=== PATIENT | female | born 2000 | race Caucasian/White ===

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

== ENCOUNTER 2021-02-13 07:48 | Emergency (ER) | payer OTHER ==
[2021-02-13 07:54] VITALS: BP 109/71; PULSE 93; RESP 20; TEMP 98.4
[2021-02-13] MEDS ORDERED: METOCLOPRAMIDE 5 MG/ML 2 ML VIAL IVP STA (08:03)
[2021-02-13] MEDS ORDERED: SODIUM CHLORIDE 0.9% 2,000 ML IV ONE (08:03)
--- NOTE | 2021-02-13 08:10 | ED ---
General Adult HPI - General Chief complaint: Upper Respiratory Infection Stated complaint: Dehydration, cough, no voice Time Seen by Provider: 02/13/21 07:54 Source: patient, RN notes reviewed Mode of arrival: ambulatory Limitations: no limitations - History of Present Illness Initial comments: This a 20-year-old female presents emergency from chief complaint cough congestion 2 weeks. Patient states that she's been sick, decreased oral intake. Patient states she has undiagnosed severe GI disorder which she states she receives nasal feeding tube was one month of the time. Patient states that her GI physician left [facility]. States that she feels dehydrated she supposed to maintain 140 pounds. Patient states that she cannot keep fluids at this time. She had fever or chills bodyaches nasal congestion, cough which is productive at this time. - Related Data Previous Rx's Medication Instructions Recorded Amoxicillin/Potassium Clav 1 tab PO Q12HR #20 tab 02/13/21 [Augmentin 875-125 Tablet] Allergies Allergy/AdvReac Type Severity Reaction Status Date / Time pentobarbital Allergy "PARADOXICAL Verified 02/13/21 09:15 [From Nembutal Sodium] REACTION"- PUNCHING, VIOLENT adhesive tape AdvReac Unknown "EATS HER Verified 02/13/21 09:15 SKIN" acetaminophen AdvReac Unknown Verified 02/13/21 09:15 NSAIDS (Non-Steroidal AdvReac Unknown- Verified 02/13/21 09:15 Anti-Inflamma FAMILY HX OF EZE-FABIO SYNDROME. Review of Systems ROS Statement: Those systems with pertinent positive or pertinent negative responses have been documented in the HPI. ROS Other: All systems not noted in ROS Statement are negative. Past Medical History Past Medical History: GERD/Reflux Additional Past Medical History / Comment(s): hx of febrile seizure at 18 months old, hydronephrosis, Seasonal asthma, elevated heart rate. Throat Mass History of Any Multi-Drug Resistant Organisms: MRSA Date of last positivie culture/infection: 2004 MDRO Source:: sinus Past Surgical History: Ear Surgery, Tonsillectomy Additional Past Surgical History / Comment(s): sinus surgery with infection and PICC Line x2., several EGD's Past Anesthesia/Blood Transfusion Reactions: Previous Problems w/ Anesthesia, Family History of Problems w/ Anesthesia Additional Past Anesthesia/Blood Transfusion Reaction / Comment(s): Patient had paradoxical reaction to nembutal- mom states violent-punching. Brother has difficulty waking up, elevated BP, rash. Mother has difficulty waking up. Past Psychological History: ADD/ADHD, Anxiety, Depression, PTSD Smoking Status: Never smoker Past Alcohol Use History: None Reported Past Drug Use History: None Reported - Past Family History Mother Family Medical History: No Reported History General Exam Limitations: no limitations General appearance: alert, in no apparent distress Head exam: Present: atraumatic, normocephalic, normal inspection Eye exam: Present: normal appearance, PERRL, EOMI. Absent: scleral icterus, conjunctival injection, periorbital swelling ENT exam: Present: normal exam, normal oropharynx, mucous membranes moist Neck exam: Present: normal inspection, full ROM. Absent: tenderness, meningismus, lymphadenopathy Respiratory exam: Present: normal lung sounds bilaterally. Absent: respiratory distress, wheezes, rales, rhonchi, stridor Cardiovascular Exam: Present: regular rate, normal rhythm, normal heart sounds. Absent: systolic murmur, diastolic murmur, rubs, gallop, clicks GI/Abdominal exam: Present: soft, normal bowel sounds. Absent: distended, tenderness, guarding, rebound, rigid Course Vital Signs 02/13/21 07:51 Temperature 98.4 F Pulse Rate 93 Respiratory 20 Rate Blood Pressure 109/71 O2 Sat by Pulse 96 Oximetry Medical Decision Making - Medical Decision Making Patient presented for upper respirations, dehydration she was hydrated, labs are unremarkable. Patient has negative COVID-19 she was hydrated will be discharged in stable condition return parameters were discussed. - Lab Data Result diagrams: 02/13/21 08:25 02/13/21 08:25 Lab Results 02/13/21 02/13/21 02/13/21 Range/Units 08:25 08:25 08:28 WBC 12.1 H (4.0-11.0) k/uL RBC 4.34 (3.80-5.40) m/uL Hgb 13.5 (11.4-16.0) gm/dL Hct 41.5 (34.0-46.0) % MCV 95.7 (80.0-100.0) fL MCH 31.1 (25.0-35.0) pg MCHC 32.5 (31.0-37.0) g/dL RDW 12.6 (11.5-15.5) % Plt Count 444 (150-450) k/uL MPV 7.3 Neutrophils % 81 % Lymphocytes % 13 % Monocytes % 3 % Eosinophils % 1 % Basophils % 1 % Neutrophils # 9.8 H (1.3-7.7) k/uL Lymphocytes # 1.5 (1.0-4.8) k/uL Monocytes # 0.4 (0-1.0) k/uL Eosinophils # 0.2 (0-0.7) k/uL Basophils # 0.1 (0-0.2) k/uL Sodium 142 (137-145) mmol/L Potassium 4.2 (3.5-5.1) mmol/L Chloride 110 H (98-107) mmol/L Carbon Dioxide 25 (22-30) mmol/L Anion Gap 7 mmol/L BUN 3 L (7-17) mg/dL Creatinine 0.48 L (0.52-1.04) mg/dL Est GFR (CKD-EPI)AfAm >90 (>60 ml/min/1.73 sqM) Est GFR (CKD-EPI)NonAf >90 (>60 ml/min/1.73 sqM) Glucose 109 H (74-99) mg/dL Calcium 9.9 (8.4-10.2) mg/dL Coronavirus (PCR) Not Detected (Not Detectd) Disposition Clinical Impression: Acute upper respiratory infection Disposition: HOME SELF-CARE Condition: Stable Instructions (If sedation given, give patient instructions): Upper Respiratory Infection (ED) Additional Instructions: Please return to the Emergency Department if symptoms worsen or any other concerns. Prescriptions: Amoxicillin/Potassium Clav [Augmentin 875-125 Tablet] 1 tab PO Q12HR #20 tab Is patient prescribed a controlled substance at d/c from ED?: No Referrals: None,Stated [Primary Care Provider] - 1-2 days Time of Disposition: 09:46
[2021-02-13 08:31] LABS: HCT 41.5 % (34.0-46.0); HGB 13.5 gm/dL (11.4-16.0); MCH 31.1 pg (25.0-35.0); MCHC 32.5 g/dL (31.0-37.0); MCV 95.7 fL (80.0-100.0); RBC 4.34 m/uL (3.80-5.40); RDW 12.6 % (11.5-15.5); WBC 12.1 k/uL (4.0-11.0)
[2021-02-13 08:32] LABS: Basophils # (A) 0.1 k/uL (0-0.2); Basophils % (A) 1 %; Eosinophils # (A) 0.2 k/uL (0-0.7); Eosinophils % (A) 1 %; Lymphocytes # (A) 1.5 k/uL (1.0-4.8); Lymphocytes % (A) 13 %; Mean Platelet Volume 7.3; Monocytes # (A) 0.4 k/uL (0-1.0); Monocytes % (A) 3 %; Neutrophils # (A) 9.8 k/uL (1.3-7.7); Neutrophils % (A) 81 %; Platelet Count 444 k/uL (150-450)
[2021-02-13 08:58] LABS: African American GFR (CKD) >90 (>60 ml/min/1.73 sqM); Anion Gap 7 mmol/L; Blood Urea Nitrogen 3 mg/dL (7-17); Calcium 9.9 mg/dL (8.4-10.2); Carbon Dioxide 25 mmol/L (22-30); Chloride 110 mmol/L (98-107); Glucose 109 mg/dL (74-99); Non-African American GFR(CKD) >90 (>60 ml/min/1.73 sqM); Potassium 4.2 mmol/L (3.5-5.1); Sodium 142 mmol/L (137-145)
== END 2021-02-13 10:34 | disposition home or self-care (01) ==
LOC: EC 07:48
DX: J06.9 Acute upper respiratory infection, unspecified (principal); Z20.822 Contact with and (suspected) exposure to COVID-19
CPT/HCPCS: 99283 ×2; 96374 ×2; 96361 ×3; 36415; 80048; 85025; 87635; J2765

== ENCOUNTER 2021-04-01 16:44 | Emergency (ER) | payer OTHER ==
[2021-04-01 17:14] VITALS: BP 109/72; PULSE 78; RESP 16; TEMP 98.8
--- NOTE | 2021-04-01 18:26 | ED ---
General Adult HPI - General Chief complaint: Nausea/Vomiting/Diarrhea Stated complaint: Covid exposure/symptoms Time Seen by Provider: 04/01/21 17:58 Source: patient Mode of arrival: ambulatory - History of Present Illness Initial comments: 20-year-old female presents emergency Department with cold-like symptoms. States that she is having headache, chills, diarrhea and nausea. She was exposed to Covid on 3 separate occasions in the past week. Not vaccinated. Reports that she continues to be able to tolerate oral intake. Denies fevers. No concern for . Denies vomiting or chest pain. No abdominal pain. No other alleviating, precipitating factors - Related Data Previous Rx's Medication Instructions Recorded Amoxicillin/Potassium Clav 1 tab PO Q12HR #20 tab 02/13/21 [Augmentin 875-125 Tablet] Allergies Allergy/AdvReac Type Severity Reaction Status Date / Time pentobarbital Allergy "PARADOXICAL Verified 04/01/21 17:14 [From Nembutal Sodium] REACTION"- PUNCHING, VIOLENT adhesive tape AdvReac Unknown "EATS HER Verified 04/01/21 17:14 SKIN" acetaminophen AdvReac Unknown Verified 04/01/21 17:14 NSAIDS (Non-Steroidal AdvReac Unknown- Verified 04/01/21 17:14 Anti-Inflamma FAMILY HX OF EZE-FABIO SYNDROME. Review of Systems ROS Statement: Those systems with pertinent positive or pertinent negative responses have been documented in the HPI. ROS Other: All systems not noted in ROS Statement are negative. Past Medical History Past Medical History: GERD/Reflux Additional Past Medical History / Comment(s): hx of febrile seizure at 18 months old, hydronephrosis, Seasonal asthma, elevated heart rate. Throat Mass , [id number] History of Any Multi-Drug Resistant Organisms: MRSA Date of last positivie culture/infection: 2004 MDRO Source:: sinus Past Surgical History: Ear Surgery, Tonsillectomy Additional Past Surgical History / Comment(s): sinus surgery with infection and PICC Line x2., several EGD's Past Anesthesia/Blood Transfusion Reactions: Previous Problems w/ Anesthesia, Family History of Problems w/ Anesthesia Additional Past Anesthesia/Blood Transfusion Reaction / Comment(s): Patient had paradoxical reaction to nembutal- mom states violent-punching. Brother has difficulty waking up, elevated BP, rash. Mother has difficulty waking up. Past Psychological History: ADD/ADHD, Anxiety, Depression, PTSD Smoking Status: Never smoker Past Alcohol Use History: None Reported Past Drug Use History: Marijuana - Past Family History Mother Family Medical History: No Reported History Course Vital Signs 04/01/21 17:11 Temperature 98.8 F Pulse Rate 78 Respiratory 16 Rate Blood Pressure 109/72 O2 Sat by Pulse 98 Oximetry Medical Decision Making - Medical Decision Making Upon arrival patient is placed into room 28. A thorough history and physical exam is performed. She is swabbed for Covid and it is negative. Results are discussed with the patient. She will be discharged home at this time and is to follow-up with her primary care doctor in regards to her symptoms. Vitals are stable at this time. Patient in no respiratory distress. Patient discharged home in stable condition - Lab Data Lab Results 04/01/21 Range/Units 17:14 Coronavirus (PCR) Not Detected (Not Detectd) Disposition Clinical Impression: Nausea & vomiting, Exposure to COVID-19 virus Disposition: HOME SELF-CARE Condition: Stable Instructions (If sedation given, give patient instructions): Upper Respiratory Infection (ED) Additional Instructions: You should quarantine if you have symptoms. Follow up with your primary care doctor in 2-4 days. Return to the emergency room for any new or worsening symptoms Is patient prescribed a controlled substance at d/c from ED?: No Referrals: None,Stated [Primary Care Provider] - 1-2 days Time of Disposition: 18:26
== END 2021-04-01 18:59 | disposition home or self-care (01) ==
LOC: EC 16:44
DX: R11.2 Nausea with vomiting, unspecified (principal); Z20.822 Contact with and (suspected) exposure to COVID-19; F90.9 Attention-deficit hyperactivity disorder, unspecified type; F41.9 Anxiety disorder, unspecified; F32.A Depression, unspecified; F43.10 Post-traumatic stress disorder, unspecified; F12.90 Cannabis use, unspecified, uncomplicated
CPT/HCPCS: 87635; 99283

== ENCOUNTER 2021-04-29 01:19 | Emergency (ER) | payer OTHER ==
[2021-04-29 01:28] VITALS: TEMP 97.3
[2021-04-29] MEDS ORDERED: SODIUM CHLORIDE 0.9% 1,000 ML IV ONE (02:39)
[2021-04-29 03:31] LABS: Basophils # (A) 0.1 k/uL (0-0.2); Basophils % (A) 1 %; Eosinophils # (A) 0.2 k/uL (0-0.7); Eosinophils % (A) 2 %; HCT 37.1 % (34.0-46.0); HGB 12.4 gm/dL (11.4-16.0); Lymphocytes # (A) 3.1 k/uL (1.0-4.8); Lymphocytes % (A) 29 %; MCH 31.7 pg (25.0-35.0); MCHC 33.4 g/dL (31.0-37.0); MCV 94.9 fL (80.0-100.0); Mean Platelet Volume 7.5; Monocytes # (A) 0.6 k/uL (0-1.0); Monocytes % (A) 6 %; Neutrophils # (A) 6.6 k/uL (1.3-7.7); Neutrophils % (A) 61 %; Platelet Count 433 k/uL (150-450); RBC 3.91 m/uL (3.80-5.40); RDW 12.8 % (11.5-15.5); WBC 10.8 k/uL (4.0-11.0)
[2021-04-29 03:47] LABS: ALT 9 U/L (4-34); AST 21 U/L (14-36); African American GFR (CKD) >90 (>60 ml/min/1.73 sqM); Albumin 4.1 g/dL (3.5-5.0); Alkaline Phosphatase 50 U/L (38-126); Anion Gap 9 mmol/L; Blood Urea Nitrogen 9 mg/dL (7-17); Calcium 9.6 mg/dL (8.4-10.2); Carbon Dioxide 25 mmol/L (22-30); Chloride 104 mmol/L (98-107); Glucose 87 mg/dL (74-99); Non-African American GFR(CKD) >90 (>60 ml/min/1.73 sqM); Potassium 4.1 mmol/L (3.5-5.1); Sodium 138 mmol/L (137-145); Total Bilirubin 1.9 mg/dL (0.2-1.3); Total Protein 6.9 g/dL (6.3-8.2)
--- NOTE | 2021-04-29 04:13 | ED ---
Recheck HPI - General Chief Complaint: Recheck/Abnormal Lab/Rx Stated Complaint: Dehydration Time Seen by Provider: 04/29/21 02:34 Source: patient Mode of arrival: ambulatory - History of Present Illness Initial Comments: 20 year-old female patient presents for concerns of dehydration. Patient states she has chronic abdominal pain, vomiting, and diarrhea. States her physician be lieves it is related to a genetic mutation which they are currently evaluating. States that she sees a main galley scullion for bilateral hydronephrosis and was told if she became dehydrated to come in for IV hydration. Patient states that she has had decreased urine output. States she has vomited three times today. She states she always has diarrhea. States her symptoms are no worse than usual. Denies a [place] fever or chills. Denies any chance of . States her period started on 04/11/2021. Denies chance of . - Related Data Previous Rx's Medication Instructions Recorded Amoxicillin/Potassium Clav 1 tab PO Q12HR #20 tab 02/13/21 [Augmentin 875-125 Tablet] Allergies Allergy/AdvReac Type Severity Reaction Status Date / Time pentobarbital Allergy "PARADOXICAL Verified 04/29/21 01:28 [From Nembutal Sodium] REACTION"- PUNCHING, VIOLENT adhesive tape AdvReac Unknown "EATS HER Verified 04/29/21 01:28 SKIN" acetaminophen AdvReac Unknown Verified 04/29/21 01:28 NSAIDS (Non-Steroidal AdvReac Unknown- Verified 04/29/21 01:28 Anti-Inflamma FAMILY HX OF EZE-FABIO SYNDROME. Review of Systems ROS Statement: Those systems with pertinent positive or pertinent negative responses have been documented in the HPI. ROS Other: All systems not noted in ROS Statement are negative. Past Medical History Past Medical History: GERD/Reflux Additional Past Medical History / Comment(s): hx of febrile seizure at 18 months old, hydronephrosis, Seasonal asthma, elevated heart rate. Throat Mass , MTDN5 History of Any Multi-Drug Resistant Organisms: MRSA Date of last positivie culture/infection: 2004 MDRO Source:: sinus Past Surgical History: Ear Surgery, Tonsillectomy Additional Past Surgical History / Comment(s): sinus surgery with infection and PICC Line x2., several EGD's Past Anesthesia/Blood Transfusion Reactions: Previous Problems w/ Anesthesia, Family History of Problems w/ Anesthesia Additional Past Anesthesia/Blood Transfusion Reaction / Comment(s): Patient had paradoxical reaction to nembutal- mom states violent-punching. Brother has difficulty waking up, elevated BP, rash. Mother has difficulty waking up. Past Psychological History: ADD/ADHD, Anxiety, Depression, PTSD Smoking Status: Never smoker Past Alcohol Use History: None Reported Past Drug Use History: Marijuana - Past Family History Mother Family Medical History: No Reported History General Exam General appearance: alert, in no apparent distress, other (This is a well- developed, well-nourished adult female in no acute distress.) Respiratory exam: Present: normal lung sounds bilaterally. Absent: respiratory distress, wheezes, rales, rhonchi, stridor Cardiovascular Exam: Present: regular rate, normal rhythm, normal heart sounds. Absent: systolic murmur, diastolic murmur, rubs, gallop, clicks GI/Abdominal exam: Present: soft, normal bowel sounds. Absent: distended, tenderness, guarding, rebound, rigid Neurological exam: Present: alert, oriented X3, CN II-XII intact Psychiatric exam: Present: normal affect, normal mood Skin exam: Present: warm, dry, intact, normal color. Absent: rash Course Vital Signs 04/29/21 01:23 Temperature 97.3 F L Pulse Rate 81 Respiratory 16 Rate Blood Pressure 103/71 Medical Decision Making - Medical Decision Making 20-year-old female patient presents to the emergency department today for dehydration. Reports chronic vomiting diarrhea. Physical examination is unremarkable. Abdomen soft and nontender. Labs reviewed and are unremarkable. 2+ ketones in the urine. She was given IV fluids. She'll be discharged follow- up with her primary care physician as needed. Return parameters were discussed in detail. She verbalizes understanding and agrees with this plan. My attending is Dr. Armando. - Lab Data Result diagrams: 04/29/21 03:10 04/29/21 03:10 Lab Results 04/29/21 04/29/21 04/29/21 Range/Units 03:10 03:10 03:17 WBC 10.8 (4.0-11.0) k/uL RBC 3.91 (3.80-5.40) m/uL Hgb 12.4 (11.4-16.0) gm/dL Hct 37.1 (34.0-46.0) % MCV 94.9 (80.0-100.0) fL MCH 31.7 (25.0-35.0) pg MCHC 33.4 (31.0-37.0) g/dL RDW 12.8 (11.5-15.5) % Plt Count 433 (150-450) k/uL MPV 7.5 Neutrophils % 61 % Lymphocytes % 29 % Monocytes % 6 % Eosinophils % 2 % Basophils % 1 % Neutrophils # 6.6 (1.3-7.7) k/uL Lymphocytes # 3.1 (1.0-4.8) k/uL Monocytes # 0.6 (0-1.0) k/uL Eosinophils # 0.2 (0-0.7) k/uL Basophils # 0.1 (0-0.2) k/uL Sodium 138 (137-145) mmol/L Potassium 4.1 (3.5-5.1) mmol/L Chloride 104 (98-107) mmol/L Carbon Dioxide 25 (22-30) mmol/L Anion Gap 9 mmol/L BUN 9 (7-17) mg/dL Creatinine 0.50 L (0.52-1.04) mg/dL Est GFR (CKD-EPI)AfAm >90 (>60 ml/min/1.73 sqM) Est GFR (CKD-EPI)NonAf >90 (>60 ml/min/1.73 sqM) Glucose 87 (74-99) mg/dL Calcium 9.6 (8.4-10.2) mg/dL Total Bilirubin 1.9 H (0.2-1.3) mg/dL AST 21 (14-36) U/L ALT 9 (4-34) U/L Alkaline Phosphatase 50 (38-126) U/L Total Protein 6.9 (6.3-8.2) g/dL Albumin 4.1 (3.5-5.0) g/dL Urine Color Yellow Urine Appearance Clear (Clear) Urine pH 5.5 (5.0-8.0) Ur Specific [place] 1.025 (1.001-1.035) Urine Protein Trace H (Negative) Urine Glucose (UA) Negative (Negative) Urine Ketones 2+ H (Negative) Urine Blood Negative (Negative) Urine Nitrite Negative (Negative) Urine Bilirubin Negative (Negative) Urine Urobilinogen 2.0 (<2.0) mg/dL Ur Leukocyte Esterase Negative (Negative) Urine HCG, Qual (Not Detectd) 04/29/21 Range/Units 03:17 WBC (4.0-11.0) k/uL RBC (3.80-5.40) m/uL Hgb (11.4-16.0) gm/dL Hct (34.0-46.0) % MCV (80.0-100.0) fL MCH (25.0-35.0) pg MCHC (31.0-37.0) g/dL RDW (11.5-15.5) % Plt Count (150-450) k/uL MPV Neutrophils % % Lymphocytes % % Monocytes % % Eosinophils % % Basophils % % Neutrophils # (1.3-7.7) k/uL Lymphocytes # (1.0-4.8) k/uL Monocytes # (0-1.0) k/uL Eosinophils # (0-0.7) k/uL Basophils # (0-0.2) k/uL Sodium (137-145) mmol/L Potassium (3.5-5.1) mmol/L Chloride (98-107) mmol/L Carbon Dioxide (22-30) mmol/L Anion Gap mmol/L BUN (7-17) mg/dL Creatinine (0.52-1.04) mg/dL Est GFR (CKD-EPI)AfAm (>60 ml/min/1.73 sqM) Est GFR (CKD-EPI)NonAf (>60 ml/min/1.73 sqM) Glucose (74-99) mg/dL Calcium (8.4-10.2) mg/dL Total Bilirubin (0.2-1.3) mg/dL AST (14-36) U/L ALT (4-34) U/L Alkaline Phosphatase (38-126) U/L Total Protein (6.3-8.2) g/dL Albumin (3.5-5.0) g/dL Urine Color Urine Appearance (Clear) Urine pH (5.0-8.0) Ur Specific [place] (1.001-1.035) Urine Protein (Negative) Urine Glucose (UA) (Negative) Urine Ketones (Negative) Urine Blood (Negative) Urine Nitrite (Negative) Urine Bilirubin (Negative) Urine Urobilinogen (<2.0) mg/dL Ur Leukocyte Esterase (Negative) Urine HCG, Qual Not Detected (Not Detectd) Disposition Clinical Impression: Dehydration Disposition: HOME SELF-CARE Condition: Good Instructions (If sedation given, give patient instructions): Dehydration (ED), Acute Nausea and Vomiting (ED), Acute Diarrhea (ED) Additional Instructions: Follow-up with your primary care physician for recheck in 1-2 days. Return to the emergency department for any new, worsening, or concerning symptoms. Is patient prescribed a controlled substance at d/c from ED?: No Referrals: None,Stated [Primary Care Provider] - 1-2 days Time of Disposition: 04:38
[2021-04-29 04:22] LABS: Appearance,Urine Clear (Clear); Bilirubin,Urine Negative (Negative); Blood,Urine Negative (Negative); Color,Urine Yellow; Glucose,Urine (UA) Negative (Negative); Ketones,Urine 2+ (Negative); Leukocyte Esterase,Urine Negative (Negative); Nitrite,Urine Negative (Negative); PH, Urine 5.5 (5.0-8.0); Protein,Urine Trace (Negative); Specific Gravity,Urine 1.025 (1.001-1.035)
[2021-04-29 04:52] VITALS: BP 117/68; PULSE 73; RESP 17
== END 2021-04-29 04:52 | disposition home or self-care (01) ==
LOC: EC 01:19
DX: E86.0 Dehydration (principal); K21.9 Gastro-esophageal reflux disease without esophagitis; F12.90 Cannabis use, unspecified, uncomplicated
CPT/HCPCS: 36415; 80053; 81003; 81025; 85025; 96360; 99284

== ENCOUNTER 2021-12-19 07:09 | Emergency (ER) | payer OTHER ==
[2021-12-19 07:22] VITALS: TEMP 98.1
[2021-12-19] MEDS ORDERED: diphenhydrAMINE 25 MG CAP PO STA (07:38)
[2021-12-19] MEDS ORDERED: ACETAMINOPHEN TAB 325 MG TAB PO STA (07:38)
--- NOTE | 2021-12-19 07:42 | ED ---
Female Urogenital HPI - General Chief complaint: Vaginal Bleeding Stated complaint: Vaginal bleeding, 10 weeks Time Seen by Provider: 12/19/21 07:19 Source: patient, RN notes reviewed Mode of arrival: ambulatory Limitations: no limitations - History of Present Illness Initial comments: This is a 21-year-old female who presents to the emergency department for vaginal bleeding and cramping in . States that the bleeding started this morning and is described as being light spotting. Denies passing any clots. The abdominal cramping has been present for 1-2 days. She is approximately 10 weeks . States that she is a high-risk due to elevated platelet counts. She is currently being treated at [place] for obstetrics care and is awaiting an appointment with hematology oncology in [place] as well for further evaluation of the platelet elevation. She is not taking anything for the pain. States that when she takes Tylenol, she feels like she is "burning from the inside out". However, she does not have the sen sation if she takes it with Benadryl. This is her first . Denies any nausea or vomiting. Denies any fevers, chills, sore throat, cough, dyspnea, chest pain, palpitations, nausea, vomiting, diarrhea, back pain, or headaches. MD Complaint: vaginal bleeding, pelvic pain Onset/Timin -: days(s) Last Menstrual Period: 10/05/21 Patient : Yes Number of weeks : 10 - Related Data Previous Rx's Medication Instructions Recorded Amoxicillin/Potassium Clav 1 tab PO Q12HR #20 tab 02/13/21 [Augmentin 875-125 Tablet] Allergies Allergy/AdvReac Type Severity Reaction Status Date / Time pentobarbital Allergy "PARADOXICAL Verified 12/19/21 07:19 [From Nembutal Sodium] REACTION"- PUNCHING, VIOLENT adhesive tape AdvReac Unknown "EATS HER Verified 12/19/21 07:19 SKIN" acetaminophen AdvReac Unknown Verified 12/19/21 07:19 NSAIDS (Non-Steroidal AdvReac Unknown- Verified 12/19/21 07:19 Anti-Inflamma FAMILY HX OF EZE-FABIO SYNDROME. Review of Systems ROS Statement: Those systems with pertinent positive or pertinent negative responses have been documented in the HPI. ROS Other: All systems not noted in ROS Statement are negative. Past Medical History Past Medical History: GERD/Reflux Additional Past Medical History / Comment(s): hx of febrile seizure at 18 months old, hydronephrosis, Seasonal asthma, elevated heart rate. Throat Mass , MTDN5, [place] evaluation no confirmed diagnosis. History of Any Multi-Drug Resistant Organisms: MRSA Date of last positivie culture/infection: 2004 MDRO Source:: sinus Past Surgical History: Ear Surgery, Tonsillectomy Additional Past Surgical History / Comment(s): sinus surgery with infection and PICC Line x2., several EGD's Past Anesthesia/Blood Transfusion Reactions: Previous Problems w/ Anesthesia, Family History of Problems w/ Anesthesia Additional Past Anesthesia/Blood Transfusion Reaction / Comment(s): Patient had paradoxical reaction to nembutal- mom states violent-punching. Brother has difficulty waking up, elevated BP, rash. Mother has difficulty waking up. Past Psychological History: ADD/ADHD, Anxiety, Depression, PTSD Smoking Status: Vaper Past Alcohol Use History: None Reported Past Drug Use History: Marijuana - Past Family History Mother Family Medical History: No Reported History General Exam Limitations: no limitations General appearance: alert, in no apparent distress Head exam: Present: atraumatic, normocephalic, normal inspection Respiratory exam: Present: normal lung sounds bilaterally. Absent: respiratory distress, wheezes, rales, rhonchi, stridor Cardiovascular Exam: Present: regular rate, normal rhythm, normal heart sounds. Absent: systolic murmur, diastolic murmur, rubs, gallop, clicks GI/Abdominal exam: Present: normal bowel sounds Neurological exam: Present: alert, oriented X3, CN II-XII intact Psychiatric exam: Present: normal affect, normal mood Skin exam: Present: warm, dry, intact, normal color. Absent: rash Course Vital Signs 12/19/21 12/19/21 12/19/21 07:19 10:07 10:46 Temperature 98.1 F Pulse Rate 106 H 78 81 Respiratory 18 15 16 Rate Blood Pressure 105/65 98/61 111/72 O2 Sat by Pulse 99 99 97 Oximetry Medical Decision Making - Medical Decision Making This is a 21-year-old female who presents to the emergency department for v aginal bleeding and abdominal cramping. Lab work reveals leukocytosis likely due to . Urinalysis is entirely negative. Patient is Rh + and no RhoGAM is indicated. Obstetrics ultrasound reveals a single live intrauterine with possible subchorionic hemorrhage. Patient was given Tylenol and Benadryl, which she states helped her pain immensely. She did not have the sensation of burning throughout her body when taking the Tylenol because she took the Benadryl with it. Discussed that she can continue taking this at home as needed. 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 Advised [id number] vitamin B6 and Unisom as needed if she has any nausea and vomiting. Return precautions reviewed in depth, the patient is instructed to return to the emergency department with any new, worsening, or concerning symptoms. Patient verbalized understanding. This case was discussed in detail with the attending ED physician. Presentation, findings, and treatment plan discussed in detail as well. - Lab Data Result diagrams: 12/19/21 08:02 12/19/21 08:02 Lab Results 12/19/21 12/19/21 12/19/21 Range/Units 08:02 08:02 08:02 WBC 12.5 H (4.0-11.0) k/uL RBC 4.17 (3.80-5.40) m/uL Hgb 12.9 (11.4-16.0) gm/dL Hct 39.4 (34.0-46.0) % MCV 94.3 (80.0-100.0) fL MCH 30.9 (25.0-35.0) pg MCHC 32.8 (31.0-37.0) g/dL RDW 12.5 (11.5-15.5) % Plt Count 464 H (150-450) k/uL MPV 7.0 Neutrophils % 78 % Lymphocytes % 14 % Monocytes % 5 % Eosinophils % 1 % Basophils % 1 % Neutrophils # 9.8 H (1.3-7.7) k/uL Lymphocytes # 1.8 (1.0-4.8) k/uL Monocytes # 0.6 (0-1.0) k/uL Eosinophils # 0.1 (0-0.7) k/uL Basophils # 0.1 (0-0.2) k/uL Sodium 136 L (137-145) mmol/L Potassium 4.4 (3.5-5.1) mmol/L Chloride 104 (98-107) mmol/L Carbon Dioxide 21 L (22-30) mmol/L Anion Gap 11 mmol/L BUN 5 L (7-17) mg/dL Creatinine 0.44 L (0.52-1.04) mg/dL Est GFR (CKD-EPI)AfAm >90 (>60 ml/min/1.73 sqM) Est GFR (CKD-EPI)NonAf >90 (>60 ml/min/1.73 sqM) Glucose 83 (74-99) mg/dL Calcium 9.1 (8.4-10.2) mg/dL Total Bilirubin 1.0 (0.2-1.3) mg/dL AST 25 (14-36) U/L ALT 10 (4-34) U/L Alkaline Phosphatase 41 (38-126) U/L Total Protein 7.0 (6.3-8.2) g/dL Albumin 4.3 (3.5-5.0) g/dL HCG, Quant 139381.0 mIU/mL Urine Color Colorless Urine Appearance Clear (Clear) Urine pH 7.0 (5.0-8.0) Ur Specific [place] 1.006 (1.001-1.035) Urine Protein Negative (Negative) Urine Glucose (UA) Negative (Negative) Urine Ketones Negative (Negative) Urine Blood Negative (Negative) Urine Nitrite Negative (Negative) Urine Bilirubin Negative (Negative) Urine Urobilinogen <2.0 (<2.0) mg/dL Ur Leukocyte Esterase Negative (Negative) Blood Type Blood Type Recheck Bld Type Recheck Status 12/19/21 Range/Units 08:03 WBC (4.0-11.0) k/uL RBC (3.80-5.40) m/uL Hgb (11.4-16.0) gm/dL Hct (34.0-46.0) % MCV (80.0-100.0) fL MCH (25.0-35.0) pg MCHC (31.0-37.0) g/dL RDW (11.5-15.5) % Plt Count (150-450) k/uL MPV Neutrophils % % Lymphocytes % % Monocytes % % Eosinophils % % Basophils % % Neutrophils # (1.3-7.7) k/uL Lymphocytes # (1.0-4.8) k/uL Monocytes # (0-1.0) k/uL Eosinophils # (0-0.7) k/uL Basophils # (0-0.2) k/uL Sodium (137-145) mmol/L Potassium (3.5-5.1) mmol/L Chloride (98-107) mmol/L Carbon Dioxide (22-30) mmol/L Anion Gap mmol/L BUN (7-17) mg/dL Creatinine (0.52-1.04) mg/dL Est GFR (CKD-EPI)AfAm (>60 ml/min/1.73 sqM) Est GFR (CKD-EPI)NonAf (>60 ml/min/1.73 sqM) Glucose (74-99) mg/dL Calcium (8.4-10.2) mg/dL Total Bilirubin (0.2-1.3) mg/dL AST (14-36) U/L ALT (4-34) U/L Alkaline Phosphatase (38-126) U/L Total Protein (6.3-8.2) g/dL Albumin (3.5-5.0) g/dL HCG, Quant mIU/mL Urine Color Urine Appearance (Clear) Urine pH (5.0-8.0) Ur Specific [place] (1.001-1.035) Urine Protein (Negative) Urine Glucose (UA) (Negative) Urine Ketones (Negative) Urine Blood (Negative) Urine Nitrite (Negative) Urine Bilirubin (Negative) Urine Urobilinogen (<2.0) mg/dL Ur Leukocyte Esterase (Negative) Blood Type A Positive Blood Type Recheck No Previous Record Bld Type Recheck Status [facility] ONLY - Radiology Data Radiology results: report reviewed, image reviewed Disposition Clinical Impression: Vaginal bleeding during Disposition: HOME SELF-CARE Instructions (If sedation given, give patient instructions): Subchorionic Hemorrhage (ED) Additional Instructions: Return to the emergency department with any new, worsening, or concerning symptoms. Take Tylenol with the Benadryl if you have any recurrence of pain. If bleeding becomes heavier or you start passing clots, return to the emergency department for reevaluation. 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 Is patient prescribed a controlled substance at d/c from ED?: No Referrals: None,Stated [Primary Care Provider] - 1-2 days
[2021-12-19 08:32] LABS: Basophils # (A) 0.1 k/uL (0-0.2); Basophils % (A) 1 %; Eosinophils # (A) 0.1 k/uL (0-0.7); Eosinophils % (A) 1 %; HCT 39.4 % (34.0-46.0); HGB 12.9 gm/dL (11.4-16.0); Lymphocytes # (A) 1.8 k/uL (1.0-4.8); Lymphocytes % (A) 14 %; MCH 30.9 pg (25.0-35.0); MCHC 32.8 g/dL (31.0-37.0); MCV 94.3 fL (80.0-100.0); Monocytes # (A) 0.6 k/uL (0-1.0); Monocytes % (A) 5 %; Neutrophils # (A) 9.8 k/uL (1.3-7.7); Neutrophils % (A) 78 %; Platelet Count 464 k/uL (150-450); RBC 4.17 m/uL (3.80-5.40); RDW 12.5 % (11.5-15.5); WBC 12.5 k/uL (4.0-11.0)
[2021-12-19 08:36] LABS: Appearance,Urine Clear (Clear); Bilirubin,Urine Negative (Negative); Blood,Urine Negative (Negative); Color,Urine Colorless; Glucose,Urine (UA) Negative (Negative); Ketones,Urine Negative (Negative); Leukocyte Esterase,Urine Negative (Negative); Nitrite,Urine Negative (Negative); Protein,Urine Negative (Negative); Specific Gravity,Urine 1.006 (1.001-1.035); Urobilinogen,Urine <2.0 mg/dL (<2.0)
[2021-12-19 08:37] LABS: ALT 10 U/L (4-34); African American GFR (CKD) >90 (>60 ml/min/1.73 sqM); Albumin 4.3 g/dL (3.5-5.0); Anion Gap 11 mmol/L; Blood Urea Nitrogen 5 mg/dL (7-17); Calcium 9.1 mg/dL (8.4-10.2); Carbon Dioxide 21 mmol/L (22-30); Chloride 104 mmol/L (98-107); Glucose 83 mg/dL (74-99); Non-African American GFR(CKD) >90 (>60 ml/min/1.73 sqM); Sodium 136 mmol/L (137-145)
[2021-12-19 08:44] LABS: AST 25 U/L (14-36); Alkaline Phosphatase 41 U/L (38-126); Potassium 4.4 mmol/L (3.5-5.1)
--- NOTE | 2021-12-19 09:52 | US ---
EXAMINATION TYPE: Transabdominal DATE OF EXAM: 12/19/2021 9:24 AM COMPARISON: NONE CLINICAL HISTORY: Vaginal bleeding in . Cramping EXAM PERFORMED: Transvaginal (TV) and Transabdominal (TA) EXAM MEASUREMENTS: GESTATIONAL AGE / DATING Dates by LMP: (10 weeks/5 days) EDC: 07/12/2022 Dates by First Scan: No previous this is first scan Dates by Current Scan for: (10 weeks/4 days) EDC: 07/13/2022 MATERNAL ANATOMY Uterus: 8.7 x 7.3 x 7.4 cm Right Ovary: 2.6 x 1.4 x 2.9 cm Left Ovary: 2.3 x 0.9 x 2.4 cm Post CDS / Adnexa: wnl Presence of free fluid: No Presence of corpus luteal cyst: Right ovary 1.1 x 1.5 x 1.7 cm Presence of subchorionic bleed: Fundal: 0.45 x 1.2 x 0.52 cm GESTATION / SURVEY CRL: 3.6cm (10 weeks/4 days) Yolk Sac (normal less than 6mm): 6mm Heart Rate: 185 bpm Rhythm: Normal IUP: Viable IUP Age Appropriate Anatomy Limbs: Visualized Calvarium: Visualized Date of LMP: 10/05/2021 IMPRESSION: 1. Single intrauterine gestation estimated at 10 weeks 4 days gestation based on crown-rump length. C ardiac activity measures 185 bpm. For 2 Small fundal subchorionic hemorrhage may be present.
[2021-12-19 10:47] VITALS: BP 111/72; PULSE 81; RESP 16
== END 2021-12-19 10:47 | disposition home or self-care (01) ==
LOC: EC 07:09
DX: O20.9 Hemorrhage in early pregnancy, unspecified (principal); O26.891 Other specified pregnancy related conditions, first trimester; R10.9 Unspecified abdominal pain; R10.2 Pelvic and perineal pain; O99.331 Smoking (tobacco) complicating pregnancy, first trimester; F17.290 Nicotine dependence, other tobacco product, uncomplicated; Z3A.10 10 weeks gestation of pregnancy; Z88.8 Allergy status to other drugs, medicaments and biological substances; Z91.048 Other nonmedicinal substance allergy status; Z88.6 Allergy status to analgesic agent
CPT/HCPCS: 36415; 76801; 80053; 81003; 84702; 85025; 86900; 86901; 99284

== ENCOUNTER 2022-04-27 11:33 | Outpatient (CLI) | payer OTHER ==
[2022-04-27 12:56] VITALS: BP 108/60; PULSE 87; RESP 16; TEMP 98.2
--- NOTE | 2022-05-05 12:24 | P.MSEPDOC ---
Presenting Problems - Arrival Data Date of Arrival on Unit: 04/27/22 Time of Arrival on Unit: 11:35 Mode of Transport: Ambulatory - Complaint OB-Reason for Admission/Chief Complaint: Other Comment: Pt DOM 29 2/7 weeks has seen a doctor at [facility]. pt arrived c/o nausea and vomitting for the last 24hrs. pt states she threw up last at 11 am. Medical History - Information : 1 Para: 0 Term: 0 : 0 Abortions: Spontaneous or Elective: 0 Number of Living Children: 0 - Gestational Age Gestational Age by CAMPOS (wks/days): 29 Weeks and 1 Days - History Complications: No Care Review of Systems - Review of Systems Constitutional: No problems Breast: No problems ENT: No problems Cardiovascular: No problems Respiratory: No problems Gastrointestinal: Diarrhea Genitourinary: No problems Musculoskeletal: No problems Neurological: Dizziness Skin: No problems Vital Signs - Temperature Temperature: 98.2 F Temperature Source: Oral - Pulse Right Brachial Pulse Rate: 87 Pulse Assessment Method: Automatic Cuff - Respirations Respiratory Rate: 16 Oxygen Delivery Method: Room Air O2 Sat by Pulse Oximetry: 98 - Blood Pressure Right Arm Blood Pressure: 108/60 Blood Pressure Mean: 76 Blood Pressure Source: Automatic Cuff Medical Screen Scoring - Cervical Exam Membranes: Intact - Uterine Contractions Intensity: Absent - Assessment - Baby A Baseline FHR: 150 NST: Reactive Physician Notification - Physician Notified Physician Notified Date: 04/27/22 Physician Notified Time: 12:26 Physician: Dr Alvarado New Order Received: Yes - Notification Comment Comment: may discharge to home or the ER for furthe evualtion for nasea and vomitting Maternal Triage Index - Non-Urgent/Priority 4 Non-Urgent Priority 4: Yes Criteria Met for Priority 4: pt DOM EDC 4/9 29 2/7 weeks gestation. pt arrived c/o nausea and vomitting for the last 24 hrs. v/s obtained temp 98.2 B/P 108/6 PULSE 87 RESP 46 PULSE OX 98% reactive NST. ABD SOFT AND NONTENDER NO EMESIS NOTED WHILE PT HERE.Dr. Clark called with report . orders received that pt could go tothe ER for further evualtion for the Nausea and vomitting that she has been cleared OB status Disposition - Disposition OB Disposition: Discharge to home Discharge Date: 04/27/22 Discharge Time: 12:28 I agree with the RN Medical Screening Exam: Yes Case reviewed; plan agreed upon as documented in EMR&OBIX.: Yes Diagnosis: nausea and vomitting
== END 2022-04-27 12:28 | disposition home or self-care (01) ==
LOC: FBPOP 11:33
PROVIDERS: ATTEND Obstetrics & Gynecology
DX: O26.893 Other specified pregnancy related conditions, third trimester (principal); Z3A.29 29 weeks gestation of pregnancy; R11.2 Nausea with vomiting, unspecified; Z91.048 Other nonmedicinal substance allergy status; Z88.6 Allergy status to analgesic agent; Z88.8 Allergy status to other drugs, medicaments and biological substances
CPT/HCPCS: 59025; G0463; 99213

== ENCOUNTER → 2023-03-01 | Outpatient (CLI) | payer OTHER ==
[2023-03-01 20:14] LABS: Appearance,Urine Clear (Clear); Bilirubin,Urine Negative (Negative); Blood,Urine Negative (Negative); Color,Urine Yellow (Yellow); Ketones,Urine Negative (Negative); Nitrite,Urine Negative (Negative); PH, Urine 7.5; Specific Gravity,Urine 1.016 (1.001-1.030)
[2023-03-01 20:52] LABS: Basophils # (A) 0.12 X 10*3/uL (0.00-0.10); Basophils % (A) 1.3 %; Eosinophils # (A) 0.27 X 10*3/uL (0.04-0.35); HCT 42.4 % (37.2-46.3); HGB 13.6 g/dL (12.0-15.0); Lymphocytes % (A) 34.9 %; MCH 30.8 pg (27.0-32.0); MCHC 32.1 g/dL (32.0-37.0); MCV 95.9 FL (80.0-97.0); Mean Platelet Volume 9.6 FL (9.5-12.2); Monocytes # (A) 0.56 X 10*3/uL (0.20-1.00); Monocytes % (A) 6.3 %; NRBC Per 100 WBC 0 X 10*3/uL (0.00-0.01); Neutrophils # (A) 4.81 X 10*3/uL (1.80-7.70); Neutrophils % (A) 54.2 %; Platelet Count 546 X 10*3/uL (140-440); RBC 4.42 X 10*6/uL (4.10-5.20); RDW 13.9 % (11.5-14.5); WBC 8.89 X 10*3/uL (4.50-10.00)
[2023-03-01 21:25] LABS: Albumin 4.9 g/dL (3.8-4.9); Immunoglobulin A 78.2 mg/dL (60.0-350.0); Protein, Total 7.1 g/dL (6.2-8.2)
[2023-03-01 21:29] LABS: ALT 17 U/L (8-44); AST 24 U/L (13-35); Albumin/Globulin Ratio 2.27 Ratio (1.60-3.17); Alkaline Phosphatase 62 U/L (41-126); BUN/Creat Ratio 12.17 Ratio (12.00-20.00); Blood Urea Nitrogen 7.3 mg/dL (9.0-27.0); C Reactive Protein <0.30 mg/dL (0.00-0.80); Calcium 9.9 mg/dL (8.7-10.3); Carbon Dioxide 24.6 mmol/L (21.6-31.8); Chloride 105 mmol/L (96-109); Creatine Kinase 99 U/L (26-186); Globulin 2.2 g/dL (1.6-3.3); Glucose 79 mg/dL (70-110); Potassium 4.4 mmol/L (3.5-5.5); Rheumatoid Factor, Qnt <15 IU/mL (0-15); Sodium 143 mmol/L (135-145); T4, Free (Free Thyroxine) 1.14 ng/dL (0.80-1.80); Total Bilirubin 0.7 mg/dL (0.3-1.2); Total Protein 7.2 g/dL (6.2-8.2); Uric Acid 3.6 mg/dL (2.9-7.7)
[2023-03-01 22:02] LABS: Erythrocyte Sedimentation Rate 6 mm/Hr (0-20)
[2023-03-01 22:39] LABS: Hepatitis B Surface Antigen Nonreactive; Hepatitis C IgG Antibody Nonreactive
[2023-03-02 01:44] LABS: Anti-DNA, DS unit <1.0 IU/mL; Anti-Smith Ab Interp Negative (Negative); Cardiolipin Ab IgG Interp Negative (Negative); Cardiolipin Ab IgM Interp Negative (Negative); Cardiolipin IgM Antibody <1.5 U/mL; Centromere Antibody <0.2 AI; Centromere Antibody Interp Negative (Negative); DNA Double-Stranded Negative (Negative); Scleroderma SC-70 Ab <0.2 AI
[2023-03-02 01:50] LABS: Cyclic Citrull Pep IgG Unit <1.5 U/mL (<=3.9); Cyclic Citrullinated Pep IgG Negative
[2023-03-02 08:36] LABS: Angiotensin-1 Converting Enz. 7 U/L (8-52)
[2023-03-02 10:19] LABS: HLA B27 NEGATIVE
[2023-03-02 13:17] LABS: APTT 42 Sec(s) (<43); Dilute Russell Viper Venom 33 Sec(s) (<44)
[2023-03-02 14:15] LABS: C-ANCA <1:20 Titer (<1:20)
[2023-03-02 14:29] LABS: Gamma Globulin 0.91 g/dL (0.70-1.50)
[2023-03-02 14:45] LABS: Free Kappa Lt Chain Qnt, Urine 1.56 mg/dL (0.00-3.29); Free Lambda Lt Chain Qt, Urine 0.25 mg/dL (0.00-0.38)
== END | disposition home or self-care (01) ==
LOC: LABWHC1 13:28
PROVIDERS: ATTEND Internal Medicine Rheumatology
DX: Z11.59 Encounter for screening for other viral diseases (principal); E55.9 Vitamin D deficiency, unspecified; E03.9 Hypothyroidism, unspecified; R42 Dizziness and giddiness; R76.8 Other specified abnormal immunological findings in serum; Z72.89 Other problems related to lifestyle; Z86.19 Personal history of other infectious and parasitic diseases
CPT/HCPCS: 36415; 80053; 81003; 82164; 82306; 82550; 83883; 84165; 84439; 84443; 84550; 85025; 85613; 85652; 85730; 86038; 86140; 86147; 86160; 86162; 86200; 86225; 86235; 86255; 86334; 86431; 86803; 86812; 87340; 93005

== ENCOUNTER → 2023-03-09 | Outpatient (CLI) | payer OTHER ==
--- NOTE | 2023-03-10 11:25 | CA ---
Transthoracic Echo Report Name: Ericka Ramirez Age: 22 Gender: F : 2000 Exam Date: 03/09/2023 17:53 Exam Location: [place] Echo Ht (in): 61 Wt (lb): 152 Ordering Physician: Raymundo Catalan MD Attending/Referring Phys: Raymundo Catalan MD Cloak Room Attendant Jessica Upton, [facility] Procedure CPT: Indications: R07.89 CHEST PAIN Z86.19 PERSONAL HX OF SEPTICEMIA Cardiac Hx: Technical Quality: Fair Contrast 1: Total Dose (mL): Contrast 2: Total Dose (mL): MEASUREMENTS (Male / Female) Normal Values 2D ECHO LV Diastolic Diameter PLAX 4.7 cm 4.2 - 5.9 / 3.9 - 5.3 cm LV Systolic Diameter PLAX 3.0 cm IVS Diastolic Thickness 0.6 cm 0.6 - 1.0 / 0.6 - 0.9 cm LVPW Diastolic Thickness 0.7 cm 0.6 - 1.0 / 0.6 - 0.9 cm LV Relative Wall Thickness 0.3 RV Internal Dim ED PLAX 3.0 cm LA Volume 30.8 cm??? 18 - 58 / 22 - 52 cm??? LA Volume Index 17.7 cm???/m??? 16 - 28 cm???/m??? M-MODE Aortic Root Diameter MM 2.4 cm LA Systolic Diameter MM 2.4 cm LA Ao Ratio MM 1.0 AV Cusp Separation MM 2.0 cm DOPPLER AV Peak Velocity 113.7 cm/s AV Peak Gradient 5.2 mmHg AV Mean Velocity 83.0 cm/s AV Mean Gradient 2.9 mmHg AV Velocity Time Integral 22.2 cm LVOT Peak Velocity 102.9 cm/s LVOT Peak Gradient 4.2 mmHg LVOT Velocity Time Integral 19.7 cm MV Area PHT 4.7 cm??? Mitral E Point Velocity 96.3 cm/s Mitral A Point Velocity 74.7 cm/s Mitral E to A Ratio 1.3 MV Deceleration Time 160.1 ms MV E' Velocity 13.3 cm/s Mitral E to MV E' Ratio 7.3 TR Peak Velocity 197.1 cm/s TR Peak Gradient 15.5 mmHg Right Ventricular Systolic Press 19.9 mmHg FINDINGS Left Ventricle Normal left ventricular size, wall thickness, systolic function with no obvious regional wall motion abnormalities. Normal left ventricular diastolic filling pattern for age. The ejection fraction is visually estimated at 55-60 %. Right Ventricle The right ventricle is normal in size and function. Right ventricular systolic pressure within normal limits. Right Atrium The right atrium is normal in size. Left Atrium The left atrium is normal in size. Mitral Valve Structurally normal mitral valve without significant stenosis or prolapse. There is no mitral regurgitation. Aortic Valve Structurally normal aortic valve without significant sclerosis or stenosis. There is no aortic regurgitation. Tricuspid Valve Structurally normal tricuspid valve without significant stenosis. Pulmonary artery systolic pressure is normal. Mild tricuspid regurgitation. Pulmonic Valve Structurally normal pulmonic valve without significant stenosis. There is trace regurgitation. Pericardium Normal pericardium without effusion. Aorta Normal aortic root dimension. CONCLUSIONS Normal LV systolic function Previewed by: Dr. Daryl Cohen MD (Electronically Signed) Final Date: 10 March 2023 11:24
== END | disposition home or self-care (01) ==
LOC: RADECHMAIN 17:48
PROVIDERS: ATTEND Family Medicine
DX: R07.89 Other chest pain (principal); Z86.19 Personal history of other infectious and parasitic diseases
CPT/HCPCS: 93306

== ENCOUNTER → 2023-03-17 | Outpatient (CLI) | payer OTHER | END | disposition home or self-care (01) | LOC: LABWHC1 12:18 | PROVIDERS: ATTEND Family Medicine | DX: Z11.1 Encounter for screening for respiratory tuberculosis (principal) | CPT/HCPCS: 36415; 86480 ==

== ENCOUNTER → 2023-05-04 | Outpatient (CLI) | payer OTHER ==
--- NOTE | 2023-05-05 07:19 | XR ---
EXAMINATION TYPE: XR thoracic spine 2V DATE OF EXAM: 05/04/2023 CLINICAL HISTORY: pain TECHNIQUE: Frontal, lateral, and swimmer's view of thoracic spine are obtained. COMPARISON: None. FINDINGS: Thoracic spine show satisfactory alignment without evidence of acute fracture or dislocatio n. Vertebral body heights are preserved. Disc spaces are well preserved. Visualized ribs are unrem arkable. IMPRESSION: No acute fracture or dislocation is seen in the thoracic spine. ICD 10 NO FRACTURE, INIT IAL EVALUATION
--- NOTE | 2023-05-05 07:19 | XR ---
EXAMINATION TYPE: XR lumbar spine 2 or 3V DATE OF EXAM: 05/04/2023 CLINICAL HISTORY: pain TECHNIQUE: Three views of the lumbar spine are submitted. COMPARISON: None. FINDINGS: There are 5 lumbar type vertebral bodies identified. The lumbar spine shows satisfactory alignment w ithout evidence of acute fracture or dislocation. Vertebral body heights are within normal limits. Disc spaces are within normal limits. The overlying soft tissue appears unremarkable. IMPRESSION: No acute fracture or dislocation is seen in the lumbar spine. ICD 10 NO FRACTURE, INITIAL EVALUATION
== END | disposition home or self-care (01) ==
LOC: RADXRMAIN 16:28
PROVIDERS: ATTEND Family Medicine
DX: M54.9 Dorsalgia, unspecified (principal)
CPT/HCPCS: 72070; 72100

== ENCOUNTER → 2023-09-02 | Outpatient (CLI) | payer OTHER ==
--- NOTE | 2023-09-02 18:48 | US ---
EXAMINATION TYPE: US venous doppler duplex LE BI DATE OF EXAM: 09/02/2023 4:24 PM COMPARISON: NONE CLINICAL INDICATION: Female, 22 years old with history of M79.89 OTHER SPECIFIED SOFT TISSUE DISORDER S; Intermittent leg swelling; family history of DVT; Lowered immune system; abnormal labs SIDE PERFORMED: Bilateral TECHNIQUE: The lower extremity deep venous system is examined utilizing real time linear array sonog nelson with graded compression, doppler sonography and color-flow sonography. VESSELS IMAGED: Common Femoral Vein Deep Femoral Vein Greater Saphenous Vein * Femoral Vein Popliteal Vein Small Saphenous Vein * Proximal Calf Veins (* superficial vessels) Right Leg: Negative for DVT Left Leg: Negative for DVT IMPRESSION: 1. Bilateral lower extremity ultrasound negative for deep venous thrombosis.
== END | disposition home or self-care (01) ==
LOC: RADUSWWP 16:01
PROVIDERS: ATTEND Pediatrics
DX: M79.89 Other specified soft tissue disorders (principal)
CPT/HCPCS: 93970

== ENCOUNTER 2024-09-23 21:50 | Emergency (ER) | payer OTHER ==
[2024-09-23 21:58] VITALS: TEMP 98.1
--- NOTE | 2024-09-23 23:26 | ED ---
Fall HPI - General Chief Complaint: Fall Stated Complaint: fall-15 weeks twins Time Seen by Provider: 09/23/24 21:55 Source: patient, RN notes reviewed Mode of arrival: ambulatory Limitations: no limitations - History of Present Illness Initial Comments: This is a 23-year-old female who presents to the emergency department for a fall. Patient is approximately 15 weeks with twins. States that last night she fell on her left side. She did not have any substantial impact to her abdomen, but does have some residual soreness and nausea. Denies any vaginal bleeding. Currently follows with Dr. Hamilton, DIRECTOR OF MATH. Complaint: fall - Related Data Home Medications Medication Instructions Recorded Confirmed Vit No.179/Iron/Folic 04/27/22 [ Tablet] Sertraline [Zoloft] 50 mg PO DAILY 04/27/22 04/27/22 Previous Rx's Medication Instructions Recorded Ondansetron Odt [Zofran Odt] 4 mg PO Q8HR PRN #20 tab 05/14/22 Allergies Allergy/AdvReac Type Severity Reaction Status Date / Time pentobarbital Allergy "PARADOXICAL Verified 05/14/22 13:51 [From Nembutal Sodium] REACTION"- PUNCHING, VIOLENT adhesive tape AdvReac Unknown "EATS HER Verified 05/14/22 13:51 SKIN" acetaminophen AdvReac Unknown Verified 05/14/22 13:51 NSAIDS (Non-Steroidal AdvReac Unknown- Verified 05/14/22 13:51 Anti-Inflamma FAMILY HX OF EZE-FABIO SYNDROME. Review of Systems ROS Statement: Those systems with pertinent positive or pertinent negative responses have been documented in the HPI. ROS Other: All systems not noted in ROS Statement are negative. Past Medical History Past Medical History: GERD/Reflux Additional Past Medical History / Comment(s): hx of febrile seizure at 18 months old, hydronephrosis, Seasonal asthma, elevated heart rate. Throat Mass , MTDN5, CA evaluation no confirmed diagnosis. CVID History of Any Multi-Drug Resistant Organisms: None Reported Date of last positivie culture/infection: 2004 MDRO Source:: sinus Past Surgical History: Ear Surgery, Tonsillectomy Additional Past Surgical History / Comment(s): sinus surgery with infection and PICC Line x2., several EGD's Past Anesthesia/Blood Transfusion Reactions: Previous Problems w/ Anesthesia, Family History of Problems w/ Anesthesia Additional Past Anesthesia/Blood Transfusion Reaction / Comment(s): Patient had paradoxical reaction to nembutal- mom states violent-punching. Brother has difficulty waking up, elevated BP, rash. Mother has difficulty waking up. Past Psychological History: ADD/ADHD, Anxiety, Depression, PTSD Smoking Status: Vaper Past Alcohol Use History: None Reported Past Drug Use History: None Reported - Past Family History Mother Family Medical History: No Reported History General Exam Limitations: no limitations General appearance: alert, in no apparent distress Head exam: Present: atraumatic, normocephalic, normal inspection Respiratory exam: Present: normal lung sounds bilaterally. Absent: respiratory distress, wheezes, rales, rhonchi, stridor Cardiovascular Exam: Present: regular rate, normal rhythm Neurological exam: Present: alert, oriented X3, CN II-XII intact Psychiatric exam: Present: normal affect, normal mood Skin exam: Present: warm, dry, intact, normal color. Absent: rash Course Vital Signs 09/23/24 09/24/24 21:54 00:19 Temperature 98.1 F 98.1 F Pulse Rate 80 79 Respiratory 16 18 Rate Blood Pressure 107/68 105/68 O2 Sat by Pulse 98 99 Oximetry Medical Decision Making - Medical Decision Making This is a 23 year old female who presents to the emergency department for abdominal pain. Was pt. sent in by a medical professional or institution? @ -No Did you speak to anyone other than the patient for history? @ -No Did you review nursing and triage notes? @ -Yes, and I agree, it is accurate with regards to the patient's symptoms. Were old charts reviewed? @ -No Differential Diagnosis? @ -Differential Abdominal Pain Women: Appendicitis, Cholecystitis, diverticulosis, ischemic bowel, pancreatitis, hepatitis, UTI, gastroenteritis, AAA, incarcerated hernia, bowel obstruction, constipation, inflammatory bowel, hepatitis, peptic ulcer disease, splenic infarction, perforated viscus, vulvitis, ovarian torsion, PID, kidney stone, placenta abruption, this is not meant to be an all-inclusive list EKG interpreted by me (3pts min.)? @ -Not obtained X-rays interpreted by me (1pt min.)? @ -Not obtained CT interpreted by me (1pt min.)? @ -Not obtained U/S interpreted by me (1pt. min.)? @ -Obstetrics ultrasound obtained. My interpretation identifies an intraut erine twin gestation. What testing was considered but not performed? (CT, X-rays, U/S, labs)? Why? @ -None What meds were considered but not given? Why? @ -None Did you discuss the management of the patient with other professionals? @ -No Did you reconcile home meds? @ -No Was smoking cessation discussed for >3mins.? @ -No Was critical care preformed (if so, how long)? @ -No Were there social determinants of health that impacted care today? How? (Homelessness, low income, unemployed, alcoholism, drug addiction, transportation, low edu. Level, literacy, decrease access to med. care, residential, rehab)? @ -No Was there de-escalation of care discussed even if they declined? (Discuss DNR or withdrawal of care, Hospice)? @ -No What co-morbidities impacted this encounter? (DM, HTN, Smoking, COPD, CAD, Cancer, CVA, Hep., AIDS, mental health diagnosis, sleep apnea, morbid obesity)? @ - Was patient admitted / discharged? @ -Discharged. Lab work demonstrates leukocytosis and is otherwise unremarkable. Urinalysis negative for signs of blood or infection. Obstetrics ultrasound demonstrates a viable twin gestation with an estimated gestational age of 15 weeks. No acute abnormalities visualized. Tylenol administered for pain relief. Advised she continue with Tylenol as needed and follow-up with her DIRECTOR OF MATH. Patient discharged home in stable condition. Case discussed with ED attending Dr. Jacques. Return precautions reviewed in depth, the patient is instructed to return to the emergency department with any new, worsening, or concerning symptoms. Patient verbalized understanding. Undiagnosed new problem with uncertain prognosis? @ -None Drug Therapy requiring intensive monitoring for toxicity (Heparin, Nitro, Insulin, Cardizem)? @ -None Were any procedures done? @ -None Diagnosis/symptom? @ -Fall, abdominal pain, Acute, or Chronic, or Acute on Chronic? @ -Acute Uncomplicated (without systemic symptoms) or Complicated (systemic symptoms)? @ -Uncomplicated Side effects of treatment? @ -None Exacerbation, Progression, or Severe Exacerbation] @ -Not applicable Poses a threat to life or bodily function? @ -No - Lab Data Result diagrams: 09/23/24 23:15 09/23/24 23:15 Lab Results 09/23/24 09/23/2409/23/25 Range/Units 23:13 23:15 23:15 WBC 16.07 H (4.50-10.00) 10*3/uL RBC 3.49 L (4.10-5.20) 10*6/uL Hgb 11.1 L (12.0-15.0) g/dL Hct 32.4 L (37.2-46.3) % MCV 92.8 (80.0-97.0) fL MCH 31.8 (27.0-32.0) pg MCHC 34.3 (32.0-37.0) g/dL Plt Count 471 H (140-440) 10*3/uL MPV 9.2 L (9.5-12.2) fL Immature Gran % (Auto) 0.5 % Neutrophils % 75.3 % Lymphocytes % 17.2 % Monocytes % 4.8 % Eosinophils % 1.6 % Basophils % 0.6 % Immature Gran # 0.08 H (0.00-0.04) 10*3/uL Neutrophils # 12.11 H (1.80-7.70) 10*3/uL Lymphocytes # 2.76 (0.90-5.00) 10*3/uL Monocytes # 0.77 (0.20-1.00) 10*3/uL Eosinophils # 0.26 (0.04-0.35) 10*3/uL Basophils # 0.09 (0.00-0.10) 10*3/uL Sodium 134 L (137-145) mmol/L Potassium 3.9 (3.5-5.1) mmol/L Chloride 103 (98-107) mmol/L Carbon Dioxide 21 L (22-30) mmol/L Anion Gap 10 mmol/L BUN 3 L (7-17) mg/dL Creatinine 0.41 L (0.52-1.04) mg/dL Est GFR (CKD-EPI)AfAm >90 (>60 ml/min/1.73 sqM) Est GFR (CKD-EPI)NonAf >90 (>60 ml/min/1.73 sqM) Glucose 93 (74-99) mg/dL Calcium 9.7 (8.4-10.2) mg/dL Total Bilirubin 0.9 (0.2-1.3) mg/dL AST 25 (14-36) U/L ALT 19 (4-34) U/L Alkaline Phosphatase 50 (38-126) U/L Total Protein 6.4 (6.3-8.2) g/dL Albumin 3.7 (3.5-5.0) g/dL Urine Color Urine Appearance (Clear) Urine pH (5.0-8.0) Ur Specific Brid[place]man (1.001-1.035) Urine Protein (Negative) Urine Glucose (UA) (Negative) Urine Ketones (Negative) Urine Blood (Negative) Urine Nitrite (Negative) Urine Bilirubin (Negative) Urine Urobilinogen (<2.0) mg/dL Ur Leukocyte Esterase (Negative) Blood Type A Positive Blood Type Recheck A Pos Bld Type Recheck Status No Antibody Screen NEGATIVE Spec Expiration Date 09/26/2024 - 231209/23/24 Range/Units 23:40 WBC (4.50-10.00) 10*3/uL RBC (4.10-5.20) 10*6/uL Hgb (12.0-15.0) g/dL Hct (37.2-46.3) % MCV (80.0-97.0) fL MCH (27.0-32.0) pg MCHC (32.0-37.0) g/dL Plt Count (140-440) 10*3/uL MPV (9.5-12.2) fL Immature Gran % (Auto) % Neutrophils % % Lymphocytes % % Monocytes % % Eosinophils % % Basophils % % Immature Gran # (0.00-0.04) 10*3/uL Neutrophils # (1.80-7.70) 10*3/uL Lymphocytes # (0.90-5.00) 10*3/uL Monocytes # (0.20-1.00) 10*3/uL Eosinophils # (0.04-0.35) 10*3/uL Basophils # (0.00-0.10) 10*3/uL Sodium (137-145) mmol/L Potassium (3.5-5.1) mmol/L Chloride (98-107) mmol/L Carbon Dioxide (22-30) mmol/L Anion Gap mmol/L BUN (7-17) mg/dL Creatinine (0.52-1.04) mg/dL Est GFR (CKD-EPI)AfAm (>60 ml/min/1.73 sqM) Est GFR (CKD-EPI)NonAf (>60 ml/min/1.73 sqM) Glucose (74-99) mg/dL Calcium (8.4-10.2) mg/dL Total Bilirubin (0.2-1.3) mg/dL AST (14-36) U/L ALT (4-34) U/L Alkaline Phosphatase (38-126) U/L Total Protein (6.3-8.2) g/dL Albumin (3.5-5.0) g/dL Urine Color Colorless Urine Appearance Clear (Clear) Urine pH 6.5 (5.0-8.0) Ur Specific [place]man 1.005 (1.001-1.035) Urine Protein Negative (Negative) Urine Glucose (UA) Negative (Negative) Urine Ketones Negative (Negative) Urine Blood Negative (Negative) Urine Nitrite Negative (Negative) Urine Bilirubin Negative (Negative) Urine Urobilinogen <2.0 (<2.0) mg/dL Ur Leukocyte Esterase Negative (Negative) Blood Type Blood Type Recheck Bld Type Recheck Status Antibody Screen Spec Expiration Date - Radiology Data Radiology results: report reviewed, image reviewed Disposition Clinical Impression: Fall, 15 weeks gestation of , Abdominal pain Disposition: HOME SELF-CARE Instructions (If sedation given, give patient instructions): at 15 to 18 Weeks (ED) Additional Instructions: Return to the emergency department with any new, worsening, or concerning symptoms. Take Tylenol as needed for pain relief. Follow-up with your DIRECTOR OF MATH. Is patient prescribed a controlled substance at d/c from ED?: No Referrals: None,Stated [Primary Care Provider] - 1-2 days Time of Disposition: 23:49
[2024-09-23 23:28] LABS: Basophils # (A) 0.09 10*3/uL (0.00-0.10); Basophils % (A) 0.6 %; Eosinophils # (A) 0.26 10*3/uL (0.04-0.35); Eosinophils % (A) 1.6 %; HCT 32.4 % (37.2-46.3); HGB 11.1 g/dL (12.0-15.0); Lymphocytes # (A) 2.76 10*3/uL (0.90-5.00); Lymphocytes % (A) 17.2 %; MCH 31.8 pg (27.0-32.0); MCHC 34.3 g/dL (32.0-37.0); MCV 92.8 fL (80.0-97.0); Mean Platelet Volume 9.2 fL (9.5-12.2); Monocytes # (A) 0.77 10*3/uL (0.20-1.00); Monocytes % (A) 4.8 %; Neutrophils # (A) 12.11 10*3/uL (1.80-7.70); Neutrophils % (A) 75.3 %; Platelet Count 471 10*3/uL (140-440); RBC 3.49 10*6/uL (4.10-5.20); RDW 13.2 % (11.5-14.5); WBC 16.07 10*3/uL (4.50-10.00)
--- NOTE | 2024-09-23 23:28 | US ---
EXAMINATION TYPE: US OB >= 14 wk twins DATE OF EXAM: 09/23/2024 COMPARISON: NONE CLINICAL INDICATION: Female, 23 years old with history of Fall, abdominal pain; Pain after fall yeste rday, denies bleeding, known twin gestation TECHNIQUE: Grayscale imaging of the pelvis including double gestation . FINDINGS: GESTATIONAL AGE / DATING Physician Established: (15 weeks/3 days) EDC: 03/14/2025 Dates by LMP: Unknown Dates by First Scan: No prior, this is 1st scan Dates by Current Scan for Baby A: (15 weeks/6 days) EDC: 03/11/2025 Dates by Current Scan for Baby B: (15 weeks/6 days) EDC: 03/11/2025 GENERAL TWIN SURVEY MEMBRANE SEEN: Yes CERVICAL LENGTH (transabdominal; norm > 3.0cm): 3.3 cm TWIN A: SURVEY/BIOMETRY PLACENTA: Posterior PREVIA: No previa MALIKA:? 13.4 cm?Normal PRESENTATION: Variable LIE: Transvers with head maternal Left BPD: 3.1 cm 15 weeks / 5 days HC: 11.7 cm 15 weeks / 5 days AC: 9.9 cm 15 weeks / 6 days FL: 1.8 cm 15 weeks / 2 days ESTIMATED WEIGHT IN GRAMS: 130 grams ESTIMATED WEIGHT IN LBS/OZS: 0 lbs. 5 oz. WEIGHT PERCENTAGE BASED ON ESTABLISHED DATES: 53.7% HC/AC: 1.19 Normal FL/AC: 18 Normal HEART RATE: 146 bpm RHYTHM: Normal TWIN B: SURVEY/BIOMETRY PRESENTATION: Breech BPD: 3.1 cm 15 weeks / 5 days HC: 11.8 cm 15 weeks / 6 days AC: 9.5 cm 15 weeks / 4 days FL: 1.9 cm 15 weeks / 5 days ESTIMATED WEIGHT IN GRAMS: 132 grams ESTIMATED WEIGHT IN LBS/OZS: 0 lbs. 5 oz. WEIGHT PERCENTAGE BASED ON ESTABLISHED DATES: 58.1% HC/AC: 1.24 Normal FL/AC: 20 Normal HEART RATE: 150 bpm RHYTHM: Normal Viable Twin gestation, no abnormality visualized at this time. Suggested twin peak sign. IMPRESSION: Viable twin gestation with estimated gestational age of 15 weeks 6 days. Estimated due da te 03/11/2025. Suggested dichorionic diamnionic twin gestation. [facility], , 09/23/2024 11:26 PM
[2024-09-23 23:40] LABS: ALT 19 U/L (4-34); AST 25 U/L (14-36); African American GFR (CKD) >90 (>60 ml/min/1.73 sqM); Albumin 3.7 g/dL (3.5-5.0); Alkaline Phosphatase 50 U/L (38-126); Anion Gap 10 mmol/L; Blood Urea Nitrogen 3 mg/dL (7-17); Calcium 9.7 mg/dL (8.4-10.2); Carbon Dioxide 21 mmol/L (22-30); Chloride 103 mmol/L (98-107); Glucose 93 mg/dL (74-99); Non-African American GFR(CKD) >90 (>60 ml/min/1.73 sqM); Potassium 3.9 mmol/L (3.5-5.1); Sodium 134 mmol/L (137-145); Total Bilirubin 0.9 mg/dL (0.2-1.3); Total Protein 6.4 g/dL (6.3-8.2)
[2024-09-23] MEDS: SODIUM CHLORIDE 0.9% 1,000 ML IV ONE (23:41)
[2024-09-23] MEDS: ACETAMINOPHEN TAB 500 MG TAB PO STA (23:42)
[2024-09-24 00:24] LABS: Appearance,Urine Clear (Clear); Bilirubin,Urine Negative (Negative); Blood,Urine Negative (Negative); Color,Urine Colorless; Glucose,Urine (UA) Negative (Negative); Ketones,Urine Negative (Negative); Leukocyte Esterase,Urine Negative (Negative); Nitrite,Urine Negative (Negative); PH, Urine 6.5 (5.0-8.0); Protein,Urine Negative (Negative); Specific Gravity,Urine 1.005 (1.001-1.035); Urobilinogen,Urine <2.0 mg/dL (<2.0)
[2024-09-24 00:30] VITALS: BP 105/68; PULSE 79; RESP 18
== END 2024-09-24 00:30 | disposition home or self-care (01) ==
LOC: EC 21:50
DX: O26.92 Pregnancy related conditions, unspecified, second trimester (principal); O99.332 Smoking (tobacco) complicating pregnancy, second trimester; F17.290 Nicotine dependence, other tobacco product, uncomplicated; Z88.6 Allergy status to analgesic agent; Z91.09 Other allergy status, other than to drugs and biological substances; Z88.8 Allergy status to other drugs, medicaments and biological substances; Z3A.15 15 weeks gestation of pregnancy; W19.XXXA Unspecified fall, initial encounter
CPT/HCPCS: 36415; 76805; 76810; 80053; 81003; 85025; 86850; 86900; 86901; 96360; 99284

== ENCOUNTER → 2024-10-10 | Outpatient (CLI) | payer OTHER ==
[2024-10-10 19:59] LABS: Basophils # (A) 0.09 X 10*3/uL (0.00-0.10); Basophils % (A) 0.6 %; Eosinophils # (A) 0.14 X 10*3/uL (0.04-0.35); Eosinophils % (A) 0.9 %; HCT 33.5 % (37.2-46.3); HGB 11.3 g/dL (12.0-15.0); Immature Grans, Automated 0.60 %; Lymphocytes # (A) 1.87 X 10*3/uL (0.90-5.00); Lymphocytes % (A) 12.6 %; MCH 31.6 pg (27.0-32.0); MCHC 33.7 g/dL (32.0-37.0); MCV 93.6 FL (80.0-97.0); Monocytes # (A) 0.70 X 10*3/uL (0.20-1.00); Monocytes % (A) 4.7 %; NRBC Per 100 WBC 0 X 10*3/uL (0.00-0.01); Neutrophils # (A) 11.92 X 10*3/uL (1.80-7.70); Neutrophils % (A) 80.6 %; Platelet Count 513 X 10*3/uL (140-440); RBC 3.58 X 10*6/uL (4.10-5.20); RDW 13.4 % (11.5-14.5); WBC 14.81 X 10*3/uL (4.50-10.00)
== END | disposition home or self-care (01) ==
LOC: LABWHC1 14:09
PROVIDERS: ATTEND Pediatrics
DX: D83.9 Common variable immunodeficiency, unspecified (principal); T14.8XXA Other injury of unspecified body region, initial encounter
CPT/HCPCS: 36415; 85025

== ENCOUNTER 2024-10-18 13:38 | Emergency (ER) | payer OTHER ==
[2024-10-18 13:44] VITALS: TEMP 97.9
--- NOTE | 2024-10-18 14:36 | ED ---
General Adult HPI - General Chief complaint: Abdominal Pain Stated complaint: abd pain 19 weeks Time Seen by Provider: 10/18/24 13:57 Source: patient Mode of arrival: ambulatory Limitations: no limitations - History of Present Illness Initial comments: Patient is a 23 y/o female, 19 weeks with twins, presents today for 2 days abdominal pain. Patient describes it as epigastric radiating towards her right hip. Describes it as sharp and crampy and intermittent. States she has had multiple episodes nonbloody nonbilious "projectile" emesis. Denies fevers and chills denies chest pain or shortness of breath. States she wonders if she is constipated takes Colace once to twice daily. Does have daily hard stools. Pain is not resolved with bowel movements. Denies dysuria hematuria or urinary frequency. Denies vaginal bleeding or discharge. Continues to feel movements. No complications with this thus far. No prior abdominal surgeries. Denies alcohol use. States she does intermittently smoke marijuana however is cutting back. Last marijuana use was 2 days ago - Related Data Home Medications Medication Instructions Recorded Confirmed Vit No.179/Iron/Folic 04/27/22 [ Tablet] Sertraline [Zoloft] 50 mg PO DAILY 04/27/22 04/27/22 Previous Rx's Medication Instructions Recorded Ondansetron Odt [Zofran Odt] 4 mg PO Q8HR PRN #20 tab 05/14/22 Allergies Allergy/AdvReac Type Severity Reaction Status Date / Time pentobarbital Allergy "PARADOXICAL Verified 10/18/24 13:44 [From Nembutal Sodium] REACTION"- PUNCHING, VIOLENT adhesive tape AdvReac Unknown "EATS HER Verified 10/18/24 13:44 SKIN" acetaminophen AdvReac Unknown Verified 10/18/24 13:44 NSAIDS (Non-Steroidal AdvReac Unknown- Verified 10/18/24 13:44 Anti-Inflamma FAMILY HX OF CHILO-FABIO SYNDROME. Review of Systems ROS Statement: Those systems with pertinent positive or pertinent negative responses have been documented in the HPI. ROS Other: All systems not noted in ROS Statement are negative. Past Medical History Past Medical History: GERD/Reflux Additional Past Medical History / Comment(s): hx of febrile seizure at 18 months old, hydronephrosis, Seasonal asthma, elevated heart rate. Throat Mass , MTDN5, CA evaluation no confirmed diagnosis. CVID History of Any Multi-Drug Resistant Organisms: None Reported Date of last positivie culture/infection: 2004 MDRO Source:: sinus Past Surgical History: Ear Surgery, Tonsillectomy Additional Past Surgical History / Comment(s): sinus surgery with infection and PICC Line x2., several EGD's Past Anesthesia/Blood Transfusion Reactions: Previous Problems w/ Anesthesia, Family History of Problems w/ Anesthesia Additional Past Anesthesia/Blood Transfusion Reaction / Comment(s): Patient had paradoxical reaction to nembutal- mom states violent-punching. Brother has difficulty waking up, elevated BP, rash. Mother has difficulty waking up. Past Psychological History: ADD/ADHD, Anxiety, Depression, PTSD Smoking Status: Vaper Past Alcohol Use History: None Reported Past Drug Use History: None Reported - Past Family History Mother Family Medical History: No Reported History General Exam - General Exam Comments Initial Comments: PE: CONSTITUTIONAL: No apparent distress, well appearing SKIN: Warm, dry, no jaundice, hives or petechiae EYES: Pupils are equally round, extraocular movements intact without nystagmus, clear conjunctiva, non-icteric sclera HENT: Normocephalic, atraumatic, moist mucus membranes, oropharynx clear without exudates NECK: , Full range of motion, normal appearance PULMONARY: Clear to auscultation without wheezes, rhonchi, or rales, normal excursion, no accessory muscle use and no stridor CARDIOVASCULAR: Regular rate, rhythm, normal S1 and S2. No appreciated murmurs, rubs or gallops. Strong radial pulses with intact distal perfusion. No lower extremity edema GASTROINTESTINAL: Soft, gravid abdomen, active bowel sounds throughout, tend erness palpation over the right upper quadrant, mildly in epigastrium, positive Peters sign non-distended, +guarding. No hepatosplenomegaly GENITOURINARY: MUSCULOSKELETAL: Extremities have no gross deformity, no edema, redness, or swelling. No calf swelling NEUROLOGIC:_a/o x 3, GCS 15, normal mentation and speech. Moves all extremities x 4 without motor or sensory deficit PSYCHIATRIC:_normal mood and affect, thought process is clear and linear Limitations: no limitations Course Vital Signs 10/18/24 10/18/24 10/18/24 13:42 17:00 19:30 Temperature 97.9 F Pulse Rate 93 84 98 Respiratory 16 16 18 Rate Blood Pressure 113/72 101/68 104/71 O2 Sat by Pulse 98 100 99 Oximetry 10/18/24 21:07 Temperature Pulse Rate 82 Respiratory 16 Rate Blood Pressure 124/82 O2 Sat by Pulse 98 Oximetry Medical Decision Making - Medical Decision Making Was pt. sent in by a medical professional or institution (BO Fuller, AUTOMOTIVE PARTS INTERPRETER, urgent care, hospital, or jail...) When possible be specific @ -No Did you speak to anyone other than the patient for history (EMS, parent, family, police, friend...)? What history was obtained from this source @ -No Did you review nursing and triage notes (agree or disagree)? Why? @ -I reviewed nursing and triage notes Were old charts reviewed (outside hosp., previous admission, EMS record, old EKG, old radiological studies, urgent care reports/EKG's, jail records)? Report findings @ -Medical records reviewed Differential Diagnosis (chest pain, altered mental status, abdominal pain women, abdominal pain men, vaginal bleeding, weakness, fever, dyspnea, syncope, headache, dizziness, GI bleed, back pain, seizure, CVA, palpatations, mental health, musculoskeletal)? @Differential Abdominal Pain Women: Appendicitis, Cholecystitis, diverticulosis, ischemic bowel, pancreatitis, hepatitis, UTI, gastroenteritis, AAA, incarcerated hernia, bowel obstruction, constipation, inflammatory bowel, hepatitis, peptic ulcer disease, splenic infarction, perforated viscus, ovarian torsion, PID, kidney stone, placenta abruption, this is not meant to be an all-inclusive list EKG interpreted by me (3pts min.). @ -As above X-rays interpreted by me (1pt min.). @ -None done CT interpreted by me (1pt min.). @ -None done U/S interpreted by me (1pt. min.). @ -Ultrasound reviewed, showed twin fetuses, appendix was unable to be visualized What testing was considered but not performed or refused? (CT, X-rays, U/S, labs)? Why? @CT abdomen pelvis was considered however patient is 19 weeks with twins, out of concern for excessive radiation this was withheld also withheld after conversation with general surgeon What meds were considered but not given or refused? Why? @ -None Did you discuss the management of the patient with other professionals (professionals i.e. BO Fuller, AUTOMOTIVE PARTS INTERPRETER, lab, RT, psych nurse, social work program coordinator, oil sales and service rep, teacher, seaman officer, ed case manager)? Give summary Case discussed with Dr. Baeza, general surgery, recommends admission for observation to facility with [employer] principal Was smoking cessation discussed for >3mins.? @ -No Was critical care preformed (if so, how long)? @ -No Were there social determinants of health that impacted care today? How? (Homelessness, low income, unemployed, alcoholism, drug addiction, transportation, low edu. Level, literacy, decrease access to med. care, skilled nursing, rehab)? @ -No Was there de-escalation of care discussed even if they declined (Discuss DNR or withdrawal of care, Hospice)? @ -No What co-morbidities impacted this encounter? (DM, HTN, Smoking, COPD, CAD, Cancer, CVA, ARF, Chemo, Hep., AIDS, mental health diagnosis, sleep apnea, morbid obesity)? @ -None Was patient admitted / discharged? Hospital course, mention meds given and route, prescriptions, significant lab abnormalities, going to OR and other pertinent info. @ Transfer to [facility]- this is a pleasant 23-year-old female, 19 weeks with twins presenting today for epigastric and right upper quadrant pain x 2 days. Endorses associated nonbloody nonbilious emesis. No prior abdominal surgeries. Vital signs stable on arrival. Patient is well-appearing in no acute distress. Exam significant for positive Peters sign, mild epigastric tenderness to palpation. Gravid abdomen. Negative CVA tenderness. Discussed with patient plan for ultrasound, labs, fluids Pepcid to which she was agreeable. Will consider CT abdomen pelvis to assess for appendicitis if significant lab abnormalities or ultrasound unrevealing. Labs remarkable for mild leukocytosis white blood count 14.24, mild anemia hemoglobin 10.8, suspect secondary to , creatinine 0.32. Lactic 1.3. CRP is undetectable ultrasound shows heart rates of 146 and 158 of twin fetuses, no placenta previa . Otherwise ultrasound remarkable for possible mild right hydronephrosis though can be a normal variant due to patient's . Urinalysis shows no blood or signs of infection. Unable to visualize the appendix. Case was discussed with Dr. Baeza, general surgeon on-call for decision making regarding CT abdomen pelvis versus MRI. He recommends against CT abdomen pelvis due to patient's current , recommends transfer to facility with junior high school principal for further workup. Discussed this with patient to which she was agreeable. Preferred [facility]. Case discussed with Dr. Lopez, general surgery at [place], Dr. Wright emergency department [place] kindly accept patient for admission. Will start patient on D5 normal saline infusion as well as give dose Rocephin and Flagyl empirically for appendicitis. 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 Transferred in stable condition. Undiagnosed new problem with uncertain prognosis? @ -No Drug Therapy requiring intensive monitoring for toxicity (Heparin, Nitro, Insulin, Cardizem)? @ -No Were any procedures done? @ -No Diagnosis/symptom? @ -Right sided abdominal pain Acute, or Chronic, or Acute on Chronic? Acute Uncomplicated (without systemic symptoms) or Complicated (systemic symptoms)? Complicated Side effects of treatment? @ -No Exacerbation, Progression, or Severe Exacerbation? @ -No Poses a threat to life or bodily function? How? (Chest pain, [place], [place], pneumonia, PE, COPD, DKA, ARF, appy, cholecystitis, CVA, Diverticulitis, Homicidal, Suicidal, threat to staff... and all critical care pts) possibly - Lab Data Result diagrams: 10/18/24 14:45 10/18/24 14:45 Lab Results 10/18/24 10/18/24 10/18/24 Range/Units 14:27 14:45 14:45 WBC 14.24 H (4.50-10.00) 10*3/uL RBC 3.36 L (4.10-5.20) 10*6/uL Hgb 10.8 L (12.0-15.0) g/dL Hct 31.8 L (37.2-46.3) % MCV 94.6 (80.0-97.0) fL MCH 32.1 H (27.0-32.0) pg MCHC 34.0 (32.0-37.0) g/dL Plt Count 470 H (140-440) 10*3/uL MPV 9.2 L (9.5-12.2) fL Immature Gran % (Auto) 0.5 % Neutrophils % 79.2 % Lymphocytes % 14.3 % Monocytes % 4.8 % Eosinophils % 0.6 % Basophils % 0.6 % Immature Gran # 0.07 H (0.00-0.04) 10*3/uL Neutrophils # 11.28 H (1.80-7.70) 10*3/uL Lymphocytes # 2.04 (0.90-5.00) 10*3/uL Monocytes # 0.69 (0.20-1.00) 10*3/uL Eosinophils # 0.08 (0.04-0.35) 10*3/uL Basophils # 0.08 (0.00-0.10) 10*3/uL PT 9.9 L (10.0-12.5) sec INR 0.9 (<1.2) APTT 23.2 (22.0-30.0) sec Sodium (137-145) mmol/L Potassium (3.5-5.1) mmol/L Chloride (98-107) mmol/L Carbon Dioxide (22-30) mmol/L Anion Gap mmol/L BUN (7-17) mg/dL Creatinine (0.52-1.04) mg/dL Est GFR (CKD-EPI)AfAm (>60 ml/min/1.73 sqM) Est GFR (CKD-EPI)NonAf (>60 ml/min/1.73 sqM) Glucose (74-99) mg/dL Plasma Lactic Acid Kwadwo (0.7-2.0) mmol/L Calcium (8.4-10.2) mg/dL Total Bilirubin (0.2-1.3) mg/dL AST (14-36) U/L ALT (4-34) U/L Alkaline Phosphatase (38-126) U/L C-Reactive Protein (<1.0) mg/dL Total Protein (6.3-8.2) g/dL Albumin (3.5-5.0) g/dL Amylase (30-110) U/L Lipase (23-300) U/L Urine Color Colorless Urine Appearance Clear (Clear) Urine pH 7.0 (5.0-8.0) Ur Specific Seney 1.007 (1.001-1.035) Urine Protein Negative (Negative) Urine Glucose (UA) Negative (Negative) Urine Ketones 2+ H (Negative) Urine Blood Negative (Negative) Urine Nitrite Negative (Negative) Urine Bilirubin Negative (Negative) Urine Urobilinogen <2.0 (<2.0) mg/dL Ur Leukocyte Esterase Negative (Negative) Blood Type Blood Type Recheck Bld Type Recheck Status Antibody Screen Spec Expiration Date 10/18/24 10/18/24 10/18/24 Range/Units 14:45 14:45 15:02 WBC (4.50-10.00) 10*3/uL RBC (4.10-5.20) 10*6/uL Hgb (12.0-15.0) g/dL Hct (37.2-46.3) % MCV (80.0-97.0) fL MCH (27.0-32.0) pg MCHC (32.0-37.0) g/dL Plt Count (140-440) 10*3/uL MPV (9.5-12.2) fL Immature Gran % (Auto) % Neutrophils % % Lymphocytes % % Monocytes % % Eosinophils % % Basophils % % Immature Gran # (0.00-0.04) 10*3/uL Neutrophils # (1.80-7.70) 10*3/uL Lymphocytes # (0.90-5.00) 10*3/uL Monocytes # (0.20-1.00) 10*3/uL Eosinophils # (0.04-0.35) 10*3/uL Basophils # (0.00-0.10) 10*3/uL PT (10.0-12.5) sec INR (<1.2) APTT (22.0-30.0) sec Sodium 134 L (137-145) mmol/L Potassium 4.1 (3.5-5.1) mmol/L Chloride 100 (98-107) mmol/L Carbon Dioxide 24 (22-30) mmol/L Anion Gap 10 mmol/L BUN 6 L (7-17) mg/dL Creatinine 0.32 L (0.52-1.04) mg/dL Est GFR (CKD-EPI)AfAm >90 (>60 ml/min/1.73 sqM) Est GFR (CKD-EPI)NonAf >90 (>60 ml/min/1.73 sqM) Glucose 74 (74-99) mg/dL Plasma Lactic Acid Kwadwo 1.3 (0.7-2.0) mmol/L Calcium 9.4 (8.4-10.2) mg/dL Total Bilirubin 0.9 (0.2-1.3) mg/dL AST 25 (14-36) U/L ALT 18 (4-34) U/L Alkaline Phosphatase 72 (38-126) U/L C-Reactive Protein <0.5 (<1.0) mg/dL Total Protein 6.6 (6.3-8.2) g/dL Albumin 3.7 (3.5-5.0) g/dL Amylase 83 (30-110) U/L Lipase 62 (23-300) U/L Urine Color Urine Appearance (Clear) Urine pH (5.0-8.0) Ur Specific Seney (1.001-1.035) Urine Protein (Negative) Urine Glucose (UA) (Negative) Urine Ketones (Negative) Urine Blood (Negative) Urine Nitrite (Negative) Urine Bilirubin (Negative) Urine Urobilinogen (<2.0) mg/dL Ur Leukocyte Esterase (Negative) Blood Type A Positive Blood Type Recheck A Pos Bld Type Recheck Status No Antibody Screen NEGATIVE Spec Expiration Date 10/21/20242346 Disposition Clinical Impression: Right sided abdominal pain Disposition: OTHER INSTITUTION NOT DEFINED Condition: Good Referrals: None,Stated [Primary Care Provider] - 1-2 days - Out of Hospital Transfer - Req. Specs Out of Hospital Transfer - Requested Specifics: Other Emergency Center ([facility])
[2024-10-18] MEDS: ONDANSETRON 4 MG/2 ML VIAL IVP STA (14:46)
[2024-10-18] MEDS: FAMOTIDINE 20 MG/2 ML VIAL IV STA (14:46)
[2024-10-18] MEDS: LACTATED RINGERS 1,000 ML IV ONE (14:47)
[2024-10-18 14:59] LABS: Basophils # (A) 0.08 10*3/uL (0.00-0.10); Basophils % (A) 0.6 %; Eosinophils # (A) 0.08 10*3/uL (0.04-0.35); Eosinophils % (A) 0.6 %; HCT 31.8 % (37.2-46.3); HGB 10.8 g/dL (12.0-15.0); Lymphocytes # (A) 2.04 10*3/uL (0.90-5.00); Lymphocytes % (A) 14.3 %; MCH 32.1 pg (27.0-32.0); MCHC 34.0 g/dL (32.0-37.0); MCV 94.6 fL (80.0-97.0); Monocytes # (A) 0.69 10*3/uL (0.20-1.00); Monocytes % (A) 4.8 %; Neutrophils # (A) 11.28 10*3/uL (1.80-7.70); Neutrophils % (A) 79.2 %; Platelet Count 470 10*3/uL (140-440); RBC 3.36 10*6/uL (4.10-5.20); RDW 13.3 % (11.5-14.5); WBC 14.24 10*3/uL (4.50-10.00)
[2024-10-18 15:24] LABS: INR 0.9 (<1.2); Partial Thromboplastin Time 23.2 sec (22.0-30.0); Prothrombin Time 9.9 sec (10.0-12.5)
[2024-10-18 15:28] LABS: ALT 18 U/L (4-34); AST 25 U/L (14-36); African American GFR (CKD) >90 (>60 ml/min/1.73 sqM); Albumin 3.7 g/dL (3.5-5.0); Alkaline Phosphatase 72 U/L (38-126); Amylase 83 U/L (30-110); Anion Gap 10 mmol/L; Blood Urea Nitrogen 6 mg/dL (7-17); Calcium 9.4 mg/dL (8.4-10.2); Carbon Dioxide 24 mmol/L (22-30); Chloride 100 mmol/L (98-107); Glucose 74 mg/dL (74-99); Lipase 62 U/L (23-300); Non-African American GFR(CKD) >90 (>60 ml/min/1.73 sqM); Potassium 4.1 mmol/L (3.5-5.1); Sodium 134 mmol/L (137-145); Total Protein 6.6 g/dL (6.3-8.2)
--- NOTE | 2024-10-18 16:40 | US ---
EXAMINATION TYPE: US abdomen APPY DATE OF EXAM: 10/18/2024 COMPARISON: NONE CLINICAL INDICATION: Female, 23 years old with history of right sided ab pain, 19 w ; ruq nadir n/midline pain x 2 days TECHNIQUE: Multiple sonographic images of the right lower quadrant were obtained with graded compress ion with grayscale and color Doppler imaging. FINDINGS: APPENDIX Appendix not visualized within RLQ at this time No rebound tenderness noted on today's study IMPRESSION: Nonvisualization of the appendix in the right lower quadrant. This does not exclude the diagnosis of acute appendicitis. [facility], , 10/18/2024 4:38 PM
--- NOTE | 2024-10-18 16:47 | US ---
EXAMINATION TYPE: US OB >= 14 wk twins DATE OF EXAM: 10/18/2024 COMPARISON: 09/23/2024 CLINICAL INDICATION: Female, 23 years old with history of RUQ pain, 19 w preg, twins; TECHNIQUE: Grayscale imaging of the pelvis including double gestation . FINDINGS: GESTATIONAL AGE / DATING Physician Established: (19 weeks/0 days) EDC: 03/14/2025 Growth not done on today's exam GENERAL TWIN SURVEY TWIN A LOCATION in regards to maternal abd: INFERIOR TWIN B LOCATION in regards to maternal abd: SUPERIOR MEMBRANE SEEN: Yes CERVICAL LENGTH (transabdominal; norm > 3.0cm): 2.8 cm TWIN A: SURVEY/BIOMETRY PLACENTA: Posterior PREVIA: No previa MALIKA:? 11.1 cm?Normal PRESENTATION: Vertex LIE: Longitudinal HEART RATE: 146 bpm RHYTHM: Normal TWIN B: SURVEY/BIOMETRY PLACENTA: Anterior PREVIA: No previa MALIKA: 10.8cm, Normal LIE: Transverse with head maternal R HEART RATE: 150 bpm RHYTHM: Normal IMPRESSION: Twin gestation this information as described above. [facility], , 10/18/2024 4:45 PM
--- NOTE | 2024-10-18 16:47 | US ---
EXAMINATION TYPE: US abdomen limited DATE OF EXAM: 10/18/2024 COMPARISON: NONE CLINICAL INDICATION: Female, 23 years old with history of right sided ab pain, 19 w ; TECHNIQUE: Grayscale and color Doppler imaging of the right upper quadrant. FINDINGS: EXAM MEASUREMENTS: Liver Length: 15.0 cm Gallbladder Wall: 0.2 cm CBD: 0.4 cm, color Doppler imaging was utilized to isolate the common bile duct for measurement. Right Kidney: 12.9x4.5x5.8 cm SENIOR [employer] DEVELOPER NOTES: slightly limited by bowel gas, pt is 19 weeks with twins Pancreas: Tail obscured by overlying bowel gas Liver: no obvious abnormalities seen Gallbladder: No stones seen Evidence for sonographic Peters's sign: No CBD: wnl Right Kidney: ?possible dilated renal pelvis vs trace amount of hydro IMPRESSION: Dilated right collecting system which can be seen in normal physiology. [facility], , 10/18/2024 4:44 PM
[2024-10-18 17:10] LABS: Bilirubin,Urine Negative (Negative); Blood,Urine Negative (Negative); Color,Urine Colorless; Glucose,Urine (UA) Negative (Negative); Ketones,Urine 2+ (Negative); Leukocyte Esterase,Urine Negative (Negative); Nitrite,Urine Negative (Negative); PH, Urine 7.0 (5.0-8.0); Protein,Urine Negative (Negative); Specific Gravity,Urine 1.007 (1.001-1.035); Urobilinogen,Urine <2.0 mg/dL (<2.0)
[2024-10-18] MEDS: cefTRIAXone IN SWFI 1,000 MG/10 ML SYRINGE IVP STA (20:27)
[2024-10-18] MEDS: metroNIDAZOLE-NS PMX 500 MG in SALINE 1 100ML.BAG IVPB STA (20:29)
[2024-10-18] MEDS: DEXTROSE 5%-0.9% NACL 1,000 ML IV SCH (21:05)
[2024-10-18 21:11] VITALS: BP 124/82; PULSE 82; RESP 16
== END 2024-10-18 21:12 | disposition other institution (70) ==
LOC: EC 13:38
DX: O26.892 Other specified pregnancy related conditions, second trimester (principal); O99.332 Smoking (tobacco) complicating pregnancy, second trimester; F17.290 Nicotine dependence, other tobacco product, uncomplicated; Z88.6 Allergy status to analgesic agent; Z91.09 Other allergy status, other than to drugs and biological substances; Z88.8 Allergy status to other drugs, medicaments and biological substances; Z3A.19 19 weeks gestation of pregnancy
CPT/HCPCS: 36415; 86900; 86901; 80053; 82150; 83605; 83690; 85025; 85610; 85730; 86850; 86140; 81003; 76705; 76805; 76810; 99285; 96365; 96375; 96361; J2405; J0696; J1836; J1308